=== PATIENT | male | born 1960 | race Two or more races ===

== ENCOUNTER 2019-06-21 13:35 | Outpatient (CLI) | payer OTHER | END 2019-06-21 17:04 | disposition home or self-care (01) | LOC: LAB 13:35 | DX: R97.20 Elevated prostate specific antigen [PSA] (principal) ==

== ENCOUNTER → 2019-07-06 | Outpatient (CLI) | payer OTHER | END | disposition home or self-care (01) | LOC: MAMO-SONO 07:15 → SONOGRAMA 07:22 | DX: R97.20 Elevated prostate specific antigen [PSA] (principal) ==

== ENCOUNTER → 2020-07-22 11:02 | Outpatient (CLI) | payer OTHER | END | disposition home or self-care (01) | LOC: LAB 11:02 | PROVIDERS: ATTEND Urology | DX: R97.20 Elevated prostate specific antigen [PSA] (principal) ==

== ENCOUNTER 2020-08-15 07:07 | Outpatient (CLI) | payer OTHER | END 2020-08-15 07:18 | disposition home or self-care (01) | LOC: SONOGRAMA 07:07 | PROVIDERS: ATTEND Urology | DX: R97.20 Elevated prostate specific antigen [PSA] (principal) ==

== ENCOUNTER 2020-08-17 20:07 | Emergency (ER) | payer OTHER ==
[~2020-08-17] VITALS: Ht 175.3 cm; Wt 97.5 kg
[2020-08-17] MEDS ORDERED: LOSARTAN (21:00)
[2020-08-17] MEDS ORDERED: CEFUROXIME 500 MG (21:01)
[2020-08-17] MEDS ORDERED: TAMS0.4C (21:02)
== END 2020-08-17 23:23 | disposition home or self-care (01) ==
LOC: ER 20:07
DX: R50.82 Postprocedural fever (principal); N40.0 Benign prostatic hyperplasia without lower urinary tract symptoms

== ENCOUNTER 2021-03-01 13:50 | Outpatient (CLI) | payer OTHER ==
[~2021-03-01 13:50] MED LIST: CEFUROXIME 500 MG; LOSARTAN; TAMS0.4C
== END 2021-03-02 13:50 | disposition home or self-care (01) ==
LOC: PPH VACUNA 13:50
DX: Z23 Encounter for immunization (principal)

== ENCOUNTER 2022-09-16 09:47 | Outpatient (CLI) | payer OTHER | END 2022-09-16 09:57 | disposition home or self-care (01) | LOC: LAB 09:47 | PROVIDERS: ATTEND Urology | DX: R97.20 Elevated prostate specific antigen [PSA] (principal) ==